=== PATIENT | female | born 1990 | race African-American/Black ===

== ENCOUNTER 2017-03-05 22:20 | Emergency (ER) | payer BC ==
[~2017-03-05] VITALS: Ht 152.4 cm; Wt 48.0 kg
[~2017-03-05 22:20] MED LIST: CEPH500C3 PO; PRED20 PO
[2017-03-05 22:21] VITALS: BP 110/66; PULSE 97; RESP 14; TEMP 98; O2SAT 99
[2017-03-05] MEDS ORDERED: PRED-503 PO (23:26)
[2017-03-05] MEDS ORDERED: predniSONE 20 MG TAB PO ONE (23:30)
--- NOTE | 2017-03-05 23:31 | PD ---
HPI Chief Complaint: Skin Problem Time Seen by Provider: 23:20 Travel History International Travel<30 days: No Contact w/Intl Traveler<30days: No Traveled to known affect area: No History of Present Illness HPI 26-year-old black female presents from her apartment complains of a pruritic rash on her neck, upper extremities, and a few lesions on her lower back in buttocks region. She states that this is been present now for the past 3 days. She does not know the causative agent. She is only allergic to mangoes. She denies any new changes in her environment, soap detergents, or skin care products. She has not been sick recently. She denies any fever or chills. No difficulty swallowing. No shortness of breath or wheezing. Symptoms are mild. PFSH Past Medical History Medical History: Denies Significant Hx Autoimmune Disease: No Blood Disorders: No Anxiety: No Depression: No Cardiovascular Problems: No Diminished Hearing: No Genitourinary: No Musculoskeletal: No Neurologic: No Psychiatric: No Respiratory: No Sickle Cell Disease: No Tetanus Vaccination: < 5 Years Influenza Vaccination: No ?: Not LMP: 02/13/2017 Social History Alcohol Use: No Tobacco Use: No Substance Use: No Allergies-Medications (Allergen,Severity, Reaction): Coded Allergies: No Known Allergies (Verified , 11/04/14) Reported Meds & Prescriptions Reported Meds & Active Scripts Active No Active Prescriptions or Reported Medications Review of Systems Except as stated in HPI: all other systems reviewed are Neg Physical Exam Narrative GENERAL: This is a well-nourished, well-developed patient, in no apparent distress. SKIN: Patient has a raised papular rash involving the neck, upper shoulders, upper extremities, a few scattered lesions on the lower extremities as well as around the waist and lower back., ecchymoses or lesions. Warm and dry. HEAD: Atraumatic. Normocephalic. EYES: PERRL, EOMI, no discharge or injection. No scleral icterus. EARS: Clear NOSE: Nasal turbinates appear normal. THROAT: Mucosa pink and moist. Airway patent. NECK: Trachea midline. supple, moves head freely. LUNGS: Clear to auscultation. CV: Regular in rhythm. ABDOMEN: Soft nontender. EXT: No clubbing cyanosis or edema. Data Data Last Documented VS Vital Signs Date Time Temp Pulse Resp B/P (MAP) Pulse Ox O2 Delivery O2 Flow Rate FiO2 03/05/17 22:21 98.0 97 14 110/66 (81) 99 Room Air Orders Orders Prednisone (Deltasone) (03/05/17 23:30) MDM Medical Decision Making Medical Screen Exam Complete: Yes Emergency Medical Condition: Yes Medical Record Reviewed: Yes Differential Diagnosis MDM: High Differential diagnoses: Abscess, folliculitis, cellulitis, lymphangitis, abrasion, contact dermatitis Narrative Course Patient given Deltasone 40 mg by mouth. This is contact dermatitis Diagnosis Primary Impression: Contact dermatitis Qualified Codes: L25.9 - Unspecified contact dermatitis, unspecified cause Patient Instructions: General Instructions Additional Instructions: Rest. Take 10 mg Zyrtec daily. May also take additional 50 mg Benadryl every 6 hours as needed for itching. Prednisone. Dove soap. Follow-up with a medical doctor in one week. Med/Other Pt SpecificInfo: Prescription(s) given Scripts Prednisone (Deltasone) 20 Mg Tab 20 MG PO BID, #14 TAB 0 Refills Prov: Black Ford MD 03/05/17 Disposition: 01 DISCHARGE HOME Condition: Stable George Mcdonald Mar 05, 2017 23:31
== END 2017-03-05 23:52 | disposition home or self-care (01) ==
LOC: NEPD 22:20
DX: L25.9 Unspecified contact dermatitis, unspecified cause (principal)
CPT/HCPCS: 99283; J7512